=== PATIENT | male | born 1980 | race Caucasian/White ===

== ENCOUNTER 2019-02-23 15:18 | Emergency (ER) | payer SELFPAY ==
--- NOTE | 2019-02-23 15:39 | EDM.PDOC ---
ED HPI GENERAL MEDICAL PROBLEM - General Chief Complaint: ENT Problem Stated Complaint: SORE THROAT, BODY ACHES Time Seen by Provider: 02/23/19 15:37 Source of Information: Reports: Patient - History of Present Illness INITIAL COMMENTS - FREE TEXT/NARRATIVE: HISTORY AND PHYSICAL: History of present illness: Patient presents with sore throat increasing in severity last 2-3 days fever myalgias no muffled voice drooling or trismus some difficulty with solid food no difficulty with liquid Review of systems: As per history of present illness and below otherwise all systems reviewed and negative. Past medical history: As per history of present illness and as reviewed below otherwise noncontributory. Surgical history: As per history of present illness and as reviewed below otherwise noncontributory. Social history: No reported history of drug or alcohol abuse. Family history: As per history of present illness and as reviewed below otherwise noncontributory. Physical exam: HEENT: Atraumatic, normocephalic, pupils reactive, negative for conjunctival pallor or scleral icterus, mucous membranes moist, throat clear, neck supple, nontender, trachea midline. Moderate erythema small white patchy exudates Lungs: Clear to auscultation, breath sounds equal bilaterally, chest nontender. Heart: S1S2, regular, negative for clicks, rubs, or JVD. Abdomen: Soft, nondistended, nontender. Negative for masses or hepatosplenomegaly. Negative for costovertebral tenderness. Pelvis: Stable nontender. Genitourinary: Deferred. Rectal: Deferred. Extremities: Atraumatic, negative for cords or calf pain. Neurovascular unremarkable. Neuro: Awake, alert, oriented. Cranial nerves II through XII unremarkable. Cerebellum unremarkable. Motor and sensory unremarkable throughout. Exam nonfocal. Diagnostics: [] Therapeutics: [Augmentin ] Impression: [Pharyngitis] Definitive disposition and diagnosis as appropriate pending reevaluation and review of above. - Related Data Allergies Allergy/AdvReac Type Severity Reaction Status Date / Time No Known Allergies Allergy Verified 01/25/14 02:48 Home Meds: Home Meds . [No Known Home Meds] 01/25/14 [History] Past Medical History - Past Health History Medical/Surgical History: Denies Medical/Surgical History ED ROS GENERAL - Review of Systems Review Of Systems: See Below ED EXAM, GENERAL - Physical Exam Exam: See Below Departure - Departure Time of Disposition: 15:38 Disposition: Home, Self-Care 01 Condition: Good Clinical Impression: Pharyngitis - Discharge Information Referrals: PCP,None [Primary Care Provider] - Additional Instructions: The following information is given to patients seen in the emergency department who are being discharged to home. This information is to outline your options for follow-up care. We provide all patients seen in our emergency department with a follow-up referral. The need for follow-up, as well as the timing and circumstances, are variable depending upon the specifics of your emergency department visit. If you don't have a primary care physician on staff, we will provide you with a referral. We always advise you to contact your personal physician following an emergency department visit to inform them of the circumstance of the visit and for follow-up with them and/or the need for any referrals to a consulting specialist. The emergency department will also refer you to a specialist when appropriate. This referral assures that you have the opportunity for follow-up care with a specialist. All of these measure are taken in an effort to provide you with optimal care, which includes your follow-up. Under all circumstances we always encourage you to contact your private physician who remains a resource for coordinating your care. When calling for follow-up care, please make the office aware that this follow-up is from your recent emergency room visit. If for any reason you are refused follow-up, please contact the [facility] emergency department at and asked to speak to the emergency department charge nurse.
== END 2019-02-23 16:06 | disposition home or self-care (01) ==
LOC: MW.ED 15:18
DX: J02.9 Acute pharyngitis, unspecified (principal)
CPT/HCPCS: 99282

== ENCOUNTER 2024-01-31 20:50 | Emergency (ER) | payer SELFPAY ==
[2024-01-31] MEDS: Diphtheria,Pertussis(Acell),Tetanus Vaccine 0.5 ML Syringe IM ONE (21:24)
[2024-01-31] MEDS: Benzocaine 20% Topical Spray UD MUCMEM ONE (21:26)
[2024-01-31] MEDS: Lidocaine 2% Viscous Solution 15 ML UD PO ONE (21:26)
[2024-01-31] MEDS: Lidocaine 1% 5 ML VIAL INJECT ONE (22:10)
== END 2024-01-31 22:32 | disposition home or self-care (01) ==
LOC: MW.ED 20:50 → MERGE 20:50 → EDBD 20:50 → MW.ED 22:32
DX: S02.2XXA Fracture of nasal bones, initial encounter for closed fracture (principal); S01.512A Laceration without foreign body of oral cavity, initial encounter; S09.90XA Unspecified injury of head, initial encounter; Z23 Encounter for immunization; Z75.8 Other problems related to medical facilities and other health care; Y04.8XXA Assault by other bodily force, initial encounter
CPT/HCPCS: 12011; 70450; 70486; 90471; 90715; 99284; A9270; 12001; J3490